=== PATIENT | female | born 1985 | race Caucasian/White ===

== ENCOUNTER 2018-02-22 13:33 | Emergency (ER) | payer BC, SELFPAY ==
[2018-02-22 13:39] VITALS: BP 128/88; PULSE 85; RESP 16; TEMP 37; O2SAT 97
[2018-02-22 14:30] VITALS: RESP 18
[2018-02-22 15:34] LABS: Abs Immature Grans 0.02 k/cumm (0.0-0.09); Absolute Basophil Count 0.03 k/cumm (0.0-0.2); Absolute Eosinophil Count 0.06 k/cumm (0.0-0.7); Absolute Lymphocyte Count 1.59 k/cumm (1.2-3.4); Basophils % 0.3; Eosinophils % 0.6; HCT 42.3 % (36.0-46.0); HGB 14.4 g/dL (12.0-15.5); Immature Grans % 0.2; Lymphocytes % 15.9; Mean Corpuscular Hemoglobin 32.1 pg (27.0-33.0); Mean Corpuscular Volume 94.4 fL (80-95); Mean Platelet Volume 9.5 fL (8.0-11.0); Platelet Count 343 x1000/uL (130-400); RBC 4.48 m/cumm (4.00-5.20); RBC Distribution Width 12.4 % (11.7-14.6)
[2018-02-22 15:58] LABS: ALT 33 U/L (12-78); AST 20 U/L (15-37); Alkaline Phosphatase 86 U/L (46-116); Anion Gap 10.2 mmol/L (3-11); BUN 6 mg/dL (7-18); Bilirubin, Total 0.6 mg/dL (0.2-1.0); CO2 24.8 mmol/L (21.0-32.0); CREATININE 0.66 mg/dL (0.55-1.02); Calcium 8.8 mg/dL (8.5-10.1); Chloride 104 mmol/L (98-107); Glucose 93 mg/dL (70-100); Potassium 3.5 mmol/L (3.5-5.1); Sodium 139 mmol/L (136-145); TSH 2.15 uIU/mL (0.358-3.74); Total Protein 7.5 g/dL (6.4-8.2)
[2018-02-22 16:22] LABS: ETHANOL BLOOD < 3.0 mg/dL (<3)
[2018-02-22 16:43] LABS: Acetaminophen < 2 ug/mL (10-30); Salicylate < 2.8 mg/dL (2.8-20.0)
--- NOTE | 2018-02-22 17:05 | ED.GENADUL_ITS ---
Disposition Clinical Impression: Anxiety, Encounter for psychological evaluation Disposition: HOME Condition: Good Instructions: Anxiety (ED) Additional Instructions: Take your home Abilify as directed on the bottle. Please follow-up as soon as possible with the resources that we have provided. If you notice any worsening of your symptoms, or any new symptoms such as vomiting, diarrhea, fever, chills , shortness of breath, chest pain, numbness, weakness, or fainting , please return immediately to the emergency department for reevaluation. Please follow up with your primary care provider as soon as possible for reassessment and reevaluation. As always, it was a pleasure participating in your medical care today. Medical Decision Making - Lab Data Laboratory Tests 02/22/18 02/22/18 02/22/18 15:15 15:15 15:15 WBC 10.00 RBC 4.48 Hgb 14.4 Hct 42.3 MCV 94.4 MCH 32.1 MCHC 34.0 RDW 12.4 Plt Count 343 MPV 9.5 Immature Gran % 0.2 Neutrophils % 74.0 Lymphocytes % 15.9 Monocytes % 9.0 Eosinophils % 0.6 Basophils % 0.3 Absolute Neutrophils 7.40 H Absolute Lymphocytes 1.59 Absolute Monocytes 0.90 H Absolute Eosinophils 0.06 Absolute Basophils 0.03 Sodium 139 Potassium 3.5 Chloride 104 Carbon Dioxide 24.8 Anion Gap 10.2 BUN 6 L Creatinine 0.66 Estimated GFR/1.73 m2 >= 60.00 Glucose 93 Calcium 8.8 Total Bilirubin 0.6 AST 20 ALT 33 Alkaline Phosphatase 86 Total Protein 7.5 Albumin 4.0 TSH 2.15 Salicylates < 2.8 L Acetaminophen < 2 L Ethyl Alcohol < 3.0 - Medical Decision Making This is a 32-year-old female who presents with her father for concern for psychotic episode. Patient does have history of mild psychosis, was admitted a month ago for destructive behavior and self-harm. She presents today because the father is concerned with her odd behaviors at home. She has had no homicidal or suicidal ideations or behaviors. She denies any visual or auditory hallucinations. Her odd behaviors include dropping off the tops of all the aaron, arranging things very oddly in the house, with some signs concerning of mild tata. However on my exam the patient does not demonstrate any homicidal, or suicidal ideations. She has no auditory or visual hallucinations. She does have some ideas of mild grandiosity, and minimally pressured speech, but no signs of severe psychotic episode. We did have the mental health advisors come and evaluate the patient, at this point with no danger to self or others, no signs of clear psychosis, the patient has no merits to be clinically certified. Patient's laboratory workup is benign. Patient will be set up with outpatient follow-up for multiple mental health assistance programs. This is been started and confirmed by our mental health advisors here in the ED. We have recommended that the patient start taking her home Abilify again which seemed to help in the past, but which she has stopped taking for quite some time. I feel the patient is safe for discharge with close follow-up with her primary care provider, mental health advisors, and the close observation of her father. I have extensively reviewed the treatment plan and discharge instructions with the patient and their family. I have addressed all patient concerns at this time. The patient and family was made aware of what symptoms to monitor for that would warrant a return to the emergency department. Discussed the plan with the patient and family, they demonstrate verbal understanding and agreement with our assessment and plan at this time. History of Present Illness - General Chief complaint: GenMedical Stated complaint: UNKNOWN Time Seen by Provider: 02/22/18 14:14 - History of Present Illness Initial comments: This is a 32-year-old female with past medical history of psychiatric episode, with recent admission in [place], and eventual discharge on February 10. She presents today with her father for concern for psychiatric episode. The patient has very little insight into this, however father states that over the last 48 hours the patient has been having multiple odd behaviors where she has been chopping all of her aaron down, arranging them in odd patterns throughout the yard, and rearranging everything in the house to be symmetric in an obsessive-compulsive type of fashion. The father states that she had behavior like this before over a month ago when she was admitted last time with her previous psychiatric episode. When discussing things with the patient she brings up multiple various vague and insignificant complaints of questioning whether her legs are different lengths, questioning if she has mild back pain, questioning if she has mild headache. In the and the patient denies all the symptoms. She denies any auditory or visual hallucinations but does state that she has her own voice that tells her creative ways to garden. She denies any homicidal or suicidal ideations. She currently takes no home psychiatric medications or medications at all. She denies any recent surgeries. She denies any pertinent family history. She denies any IV or illicit drug use. She has not been drinking any alcohol recently. She has no other complaints at this time. - Related Data Melatonin 3 mg PO DAILY PRN 02/22/18 Allergies Allergy/AdvReac Type Severity Reaction Status Date / Time amoxicillin [Amoxicillin] Allergy Intermediate RASH Unverified 02/22/18 13:49 General Exam - Other Other exam information: 1.Const: Well-nourished, Well-developed, appearing stated age 2.Eyes: PERRL, no conjunctival injection, and symmetrical lids. 3.ENT: Atraumatic external nose and ears. Moist MM. Neck: Symmetric, trachea midline, No thyromegaly. 4.CVS: +S1/S2, No murmurs or gallops. Peripheral pulses 2+ and equal in all extremities. Brisk capillary refill in all extremities. 5.RESP: Unlabored respiratory effort. Clear to auscultation bilaterally. No wheezes rales or rhonchi 6.GI: Soft, Nontender/Nondistended, No hepatosplenomegaly. No guarding or rebound. 7.MSK: Normocephalic/Atraumatic, Extremities w/o deformity or ttp No cyanosis or clubbing, Normal movement of all extremities 8.Skin: Warm, Dry. No rashes or lesions. 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 Sensation grossly intact, no focal neurologic deficits. 10.Psych: (AAO) x3. The patient does have some rapid and slightly pressured speech, she does demonstrate some signs of mild grandiosity. She does not demonstrate any signs concerning for homicidal, suicidal ideations, or visual or auditory hallucinations. Course Vital Signs - 24 hr 02/22/18 13:39 Temperature 37.0 C Pulse 85 Respiratory 16 Rate Blood Pressure 128/88 Pulse Oximetry 97
[2018-02-22 17:10] VITALS: BP 127/76; PULSE 78; RESP 22; TEMP 37.1; O2SAT 97
[2018-02-22 17:35] VITALS: BP 127/76; PULSE 78; RESP 22; TEMP 37.1; O2SAT 97
== END 2018-02-22 17:27 | disposition home or self-care (01) ==
PROVIDERS: Emergency Provider Student in an Organized Health Care Education/Training Program
DX: F41.9 Anxiety disorder, unspecified (principal)
CPT/HCPCS: 36415; 80053; 80307; 99283; 80320; 80329; 81003; 84443; 85025

== ENCOUNTER 2018-02-28 16:57 | Emergency (ER) | payer BC, SELFPAY ==
[2018-02-28 17:05] VITALS: BP 134/72; PULSE 94; RESP 16; TEMP 36.9; O2SAT 96
[2018-02-28] MEDS: diphenhydrAMINE 25 MG CAP 50 MG PO (17:49)
[2018-02-28] MEDS: predniSONE 20 MG TAB 60 MG PO (17:49)
--- NOTE | 2018-02-28 18:55 | NUR.NOTE ---
Nursing Note: Pt reassessed. Symptoms getting better s/p medication administration. UPT obtained and negative prior to medication administration
--- NOTE | 2018-02-28 20:10 | NUR.NOTE ---
Nursing Note: Pt reassessed. Rash continues to improved. No symptoms. Declines comfort measures
--- NOTE | 2018-02-28 20:39 | ED.GENADUL_ITS ---
Disposition Clinical Impression: Allergic reaction, Urticaria Disposition: HOME Condition: Improving Instructions: Urticaria (ED), General Allergic Reaction (ED) Additional Instructions: Take Benadryl as needed and directed for itching. Take the steroids until finished. You should receive a call from care management regarding follow-up with a primary care doctor for reevaluation. Return to the emergency department with any worsening or new concerning symptoms. Prescriptions: Prednisone 20 mg PO DIRECTED #12 tablet Medical Decision Making - Lab Data test negative - Medical Decision Making 1729 -- 32-year-old female presents with urticaria to bilateral upper and lower extremities and abdomen. Minimal erythema noted to face but no distinct urticaria. She has mild edema and erythema noted to bilateral hands. Normal ENT and respiratory exam. Vitals within normal limits. She is speaking in full sentences and airway intact. At this point time it appears consistent with an allergic reaction but unsure of the specific cause. I discussed at length with patient and father that patient started Abilify 1 week ago and as this is the only new exposure, this could be the cause. Dad discussed with me outside of room and urged that patient cannot stop the Abilify as she recently had a psychotic reaction and was hospitalized and this medication has finally made her more calm. I discussed that as she has been on it for a week and her symptoms have only started this morning and she has no respiratory symptoms, she can likely continue on the Abilify. I discussed that if she does develop any difficulty swallowing or breathing while she is still taking the Abilify, to consider stopping it and he is agreeable but for now would like to keep patient on this medication. This was discussed with patient she is agreeable to stay on the medication at this time. We give a dose of steroids and Benadryl and reassess. 2030 -- long delay in reassessment and disposition due to critical patients in ED. Patient feels much better. She denies any difficulty swallowing, breathing and feels much better. Rash is noted to be improved on extremities and abdomen and has less erythema and edema. Patient feels good to go home. We will send home with a prescription for prednisone and instructed to take Benadryl for itching. We will place patient on care management list for follow-up. Father had requested help with follow-up with a primary care doctor as patient needs follow -up after her recent psych admission. Patient instructed to return to the ER with any worsening or new concerning symptoms such as difficulty breathing, swallowing or any other concerns. History of Present Illness - General Chief complaint: RashLesion Stated complaint: SWOLLEN HANDS Time Seen by Provider: 02/28/18 17:14 Source: patient Mode of arrival: ambulatory Limitations: no limitations - History of Present Illness Initial comments: Patient is a 32-year-old female presents with diffuse pruritic rash noted to face, chest, extremities since this morning. Patient states she used a new lotion this morning but this was after the symptoms started. She is unsure of any other new exposures. She admits to starting Abilify 1 week ago after a recent psychiatric admission for bipolar. She initially states she had a funny feeling in her throat but states this is now resolved. She denies vomiting, difficulty swallowing, shortness of breath or abdominal pain. - Related Data Melatonin 3 mg PO DAILY PRN 02/22/18 Aripiprazole [Abilify] 1 tab PO PRN PRN 02/28/18 Prednisone 20 mg PO DIRECTED #12 tablet 02/28/18 Allergies Allergy/AdvReac Type Severity Reaction Status Date / Time amoxicillin [Amoxicillin] Allergy Intermediate RASH Unverified 02/28/18 17:08 Review of Systems Constitutional: denies: chills, fever Eyes: denies: eye pain ENT: denies: ear pain, dental pain Respiratory: denies: cough, shortness of breath Cardiovascular: denies: chest pain, dyspnea on exertion Gastrointestinal: denies: abdominal pain, nausea, vomiting Genitourinary: denies: urgency, dysuria, frequency Musculoskeletal: denies: back pain Skin: rash Neurological: denies: headache, weakness, numbness Past Medical History - Past Medical History Medical history: no medical history Surgical history: other (Dental surgery) Psychiatric history: anxiety, bipolar, depression - Social History Smoking status: never smoker Alcohol use: none Drug use: none General Exam - General Limitations: no limitations General appearance: alert, in no apparent distress - Head Head exam: Present: atraumatic, normocephalic - Eye Eye exam: Present: PERRL, EOMI - ENT ENT exam: Present: normal orophraynx, mucous membranes moist - Neck Neck exam: Present: normal inspection - Respiratory Respiratory exam: Present: normal lung sounds bilaterally. Absent: respiratory distress, wheezes, rales, rhonchi, stridor - Cardiovascular Cardiovascular Exam: Present: regular rate, normal rhythm. Absent: bradycardia , tachycardia - GI/Abdominal GI/Abdominal exam: Present: soft, normal bowel sounds. Absent: distended, tenderness, guarding, rebound, rigid - Neurological Exam Neurological exam: Present: alert, oriented X3 - Psychiatric Psychiatric exam: Present: normal affect - Skin Skin exam: Present: other (Urticaria noted to bilateral medial arms and forearms , and anterior medial proximal legs, and abdomen. Rash is raised, erythematous and coalesced in the groupings. No crusting, erosions, fluctuance or induration. Erythema and mild edema noted to bilateral hands) Course Vital Signs - 24 hr 02/28/18 17:05 Temperature 98.4 F Pulse 94 H Respiratory 16 Rate Blood Pressure 134/72 Pulse Oximetry 96
[2018-02-28 20:49] VITALS: BP 134/72; PULSE 94; RESP 16; TEMP 36.9; O2SAT 96
--- NOTE | 2018-03-01 07:55 | PDOC.ERCMPRO ---
Care Management Progress Note 03/01-Dr. Davis requested assistance with a PCP (Dr. [facility]) f/u within one week for allergic reaction, urticaria. Also needs to be seen for mental health medications (anxiety, depression). Referral faxed to CM today.
== END 2018-02-28 20:44 | disposition home or self-care (01) ==
PROVIDERS: Emergency Provider Physician Assistant
DX: R21 Rash and other nonspecific skin eruption (principal); L50.0 Allergic urticaria; R60.0 Localized edema
CPT/HCPCS: 81025; 99283; J7512